=== PATIENT | female | born 1960 | race Caucasian/White ===

== ENCOUNTER → 2017-06-23 | Outpatient (CLI) | payer BC ==
[~2017-06-23] MED LIST: ATEN25 PO; IBUP400 PO; PRED20 PO; SUMA25 PO; THYR60 PO
== END | disposition home or self-care (01) ==
LOC: PLD 11:30 → LAB SHORT 11:30
DX: L30.8 Other specified dermatitis (principal)
CPT/HCPCS: 88305; 88312

== ENCOUNTER 2017-11-10 10:16 | Day surgery (SDC) | payer BC ==
[~2017-11-10] VITALS: Ht 175.3 cm; Wt 100.4 kg
[2017-11-10] MEDS ORDERED: CYCL10 PO (10:30)
== END 2017-11-10 11:05 | disposition home or self-care (01) ==
LOC: ORSCSDS 10:16
PROVIDERS: Anesthesiology
PROC: 3E0R33Z Introduction of Anti-inflammatory into Spinal Canal, Percutaneous Approach (ICD-10-PCS; principal; 2017-11-10 11:00)
DX: M51.16 Intervertebral disc disorders with radiculopathy, lumbar region (principal); R03.0 Elevated blood-pressure reading, without diagnosis of hypertension; E03.9 Hypothyroidism, unspecified; Z87.891 Personal history of nicotine dependence; Z79.899 Other long term (current) drug therapy
CPT/HCPCS: J1040; J2001

== ENCOUNTER → 2021-04-28 | Outpatient (CLI) | payer BC ==
[~2021-04-28] MED LIST changes: +CYCL10 PO; +EUCRISA60 GM; +HYDR1TAB94 PO; +Hair, Skin & N1 EACH; +IBUP800; +SUMA25
[2021-04-28 20:59] LABS: Free Thyroxine 0.87 ng/dL (0.70-1.60)
[2021-04-28 21:03] LABS: Thyroid Stimulating Hormone 0.781 uIU/mL (0.360-4.800); Triiodothyronine, Free 2.96 pg/mL (2.18-3.98)
== END | disposition home or self-care (01) ==
LOC: LAB SHORT 14:05 → LAB 14:05
PROVIDERS: Hospitalist
DX: E03.9 Hypothyroidism, unspecified (principal); R68.82 Decreased libido
CPT/HCPCS: 84439; 84443; 84481

== ENCOUNTER 2025-02-12 08:09 | Day surgery (SDC) | payer OTHER ==
[~2025-02-12] VITALS: Ht 172.7 cm; Wt 90.2 kg
[2025-02-12] MEDS ORDERED: NS 500 ML IV ONE ×2 (08:42→09:06)
[2025-02-12] MEDS ORDERED: ESTRADIOL (08:46)
[2025-02-12] MEDS ORDERED: CeFAZolin Sodium 2,000 MG VIAL ONE (08:49)
[2025-02-12] MEDS ORDERED: Midazolam HCl 1MG / ML 2ML Vial ONE (08:54)
[2025-02-12] MEDS ORDERED: Dexamethasone Sod Phos 10 MG/ML 1ML VIAL ONE (08:59)
[2025-02-12] MEDS ORDERED: Ondansetron HCl 2 MG / ML 2ML Vial ONE (08:59)
[2025-02-12] MEDS ORDERED: FentaNYL Citrate 50 MCG/ML 2 ML Injection ONE (09:00)
[2025-02-12] MEDS ORDERED: Lidocaine HCl 2% 10 ML SDA INJ ONE ×2 (09:09)
[2025-02-12] MEDS ORDERED: Lidocaine HCl 2% 10 ML SDA ONE (09:30)
[2025-02-12 09:45] VITALS: BP 116/75
== END 2025-02-12 10:07 | disposition home or self-care (01) ==
LOC: ORSCSDS 08:09
PROVIDERS: Orthopaedic Surgery
PROC: 0JBK0ZX Excision of Left Hand Subcutaneous Tissue and Fascia, Open Approach, Diagnostic (ICD-10-PCS; principal; 2025-02-12 09:30)
DX: R22.32 Localized swelling, mass and lump, left upper limb (principal); Q27.31 Arteriovenous malformation of vessel of upper limb; I10 Essential (primary) hypertension; E07.9 Disorder of thyroid, unspecified; Z79.899 Other long term (current) drug therapy
CPT/HCPCS: 88305; J0690; J1100; J2003; J2250; J2405; J3010; J7040